=== PATIENT | female | born 1985 | race Caucasian/White ===

== ENCOUNTER 2020-05-17 04:11 | Inpatient (IN) | payer BC, OTHER ==
[2020-05-17] MEDS ORDERED: METHYLERGONOVINE 0.2MG/ML AMP IM PRN (04:17)
[2020-05-17] MEDS ORDERED: Ringers Lactate 1,000 ML IV PRN (04:17)
[2020-05-17] MEDS ORDERED: BUTORPHANOL 1 MG/ML INJ IV PRN (04:17)
[2020-05-17] MEDS ORDERED: CARBOPROST TROME 250 MCG/ML IM PRN (04:17)
[2020-05-17] MEDS ORDERED: PROMETHAZINE INJ 25 MG/ML AMP IM PRN (04:17)
[2020-05-17] MEDS ORDERED: Ringers Lactate 1,000 ML IV SCH (05:00)
[2020-05-17] MEDS ORDERED: OXYTOCIN/LR 20 UNIT/1,000 ML BAG IV SCH ×2 (05:00→14:00)
[2020-05-17 05:09] VITALS: BMI 35.2
[2020-05-17 05:32] LABS: Absolute Lymphocytes (CBC) 1.7 K/uL (0.7-4.9); Basophils % 0.3 % (0-1.3); Hematocrit 34.2 % (36.0-45.0); MPV 9.8 fL (7.6-11.3); RBC Red Blood Cell Count 3.76 M/uL (3.86-4.86); Urine Appearance CLOUDY; Urine Bilirubin NEGATIVE (NEG); Urine Blood 1+ (NEG); Urine Color YELLOW; Urine Glucose NEGATIVE (NEG); Urine Protein NEGATIVE (NEG); Urine Urobilinogen 0.2 mg/dL (0.2-1.0)
[2020-05-17 05:35] LABS: Urine Microscopic Reflex ORDER UMIC
[2020-05-17 06:06] LABS: Urine Culture Reflex Order REFLEXED
[2020-05-17 06:07] LABS: Urine Bacteria >50 /HPF (<20); Urine RBC <5 /HPF (NONE SEEN); Urine Urothelial Cells <5 /HPF (NONE SEEN)
[2020-05-17] MEDS ORDERED: FENTANYL CITR 100 MCG/2 ML IV ONE (07:12)
[2020-05-17] MEDS ORDERED: ROPIVACAINE HCL 100 ML IV PRN (07:13)
[2020-05-17] MEDS ORDERED: ROPIVACAINE HCL 0.2% 20ML AMP IV SCH (08:00)
--- NOTE | 2020-05-17 08:44 | PREOPHP ---
Date of Admission: 05/17/2020 A 35-year-old, 4, para 3, 39 weeks' gestation, requesting induction at this point. 3 cm, sti ll somewhat posterior, 50% effaced, vertex well applied, rupture of membranes, clear fluid. Labor ta lk given. The patient's initial blood pressures are slightly elevated, but she says she is anxious a nd now getting uncomfortable. Probably will require epidural anesthesia as the labor progresses. Do ing well at this point. [facility] Voice ID: [id number]
[2020-05-17] MEDS ORDERED: LIDOCAINE 2% MPF 5 ML VIAL ONE (11:36)
[2020-05-17] MEDS ORDERED: FENTANYL CITR 100 MCG/2 ML ONE ×2 (11:56→12:17)
[2020-05-17] MEDS ORDERED: FENTANYL/BUPIVACAINE/NS/PF 200 MCG/100 ML BAG EP ONE (12:25)
[2020-05-17] MEDS ORDERED: BUPIVACAINE 0.25% PF 30 ML VIAL ONE (12:27)
[2020-05-17] MEDS ORDERED: LIDOCAINE 1% MPF 30 ML VIAL ONE (13:44)
[2020-05-17] MEDS ORDERED: BISACODYL 10 MG RECTAL SUPP PR PRN (13:51)
[2020-05-17] MEDS ORDERED: Oxycodone HCl/Acetaminophen 1 TAB TAB PO PRN (13:51)
[2020-05-17] MEDS ORDERED: DIPHENHYDRAMINE 25 MG TAB/CAP PO PRN (13:51)
[2020-05-17] MEDS ORDERED: ACETAMINOPHEN 500 MG TAB PO PRN (13:51)
[2020-05-17] MEDS ORDERED: DOCUSATE NA/SENNA CONC 1 TAB PO PRN (13:51)
[2020-05-17] MEDS: IBUPROFEN 600 MG TAB PO PRN (17:30)
[2020-05-17] MEDS: Oxycodone HCl/Acetaminophen 1 TAB TAB PO PRN (21:05)
--- NOTE | 2020-05-17 23:40 | OP ---
Surgeon: Yoni Gonzalez MD This is a 35-year-old, 4, para 3, 39 weeks' gestation, 3 cm on admission. The patient is Rh negative, has received RhoGAM during the . Immune to Rubella. Negative beta strep screen. Rupture of membranes this morning, clear fluid. The patient progressed rapidly thereafter. Epidura l anesthesia was established at approximately 4-5 cm. The patient went to complete, second stage of about 10 minutes. Spontaneous vaginal delivery of 8 pounds 15 ounces male infant, Apgars 9 and 9, lo ose nuchal cord x1. No episiotomy. No laceration. Schultze delivery of the placenta, which was ins pected and noted be intact and normal. 350 cc or less blood loss. The patient tolerated all procedu res well. Final Diagnoses: Term intrauterine 39 weeks, labor induction, vaginal delivery, epidural a nesthesia, Rh negative, RhoGAM pending. [facility] Voice ID: [id number] Report ID: [id number]
[2020-05-18] MEDS: Oxycodone HCl/Acetaminophen 1 TAB TAB PO PRN ×4 (00:48→19:35)
[2020-05-18 01:13] LABS: RPR (Rapid Plasma Reagin) NON-REACT (NON-REACT)
[2020-05-18] MEDS: IBUPROFEN 600 MG TAB PO PRN ×4 (04:28→23:32)
[2020-05-18] MEDS ORDERED: Tdap (Diph,Pertuss(Acell),Tet Vac) 0.5 ML SYR IMVAC ONE (07:20)
--- NOTE | 2020-05-18 08:48 | DS ---
A 35-year-old, 4, para 3, 39 weeks' gestation, delivered an 8 pounds 15-ounce male infant, Ap gars 9 and 9. No episiotomy. No laceration. Schultze delivery of placenta. 350 mL or less blood l oss. The baby noted to have a loose nuchal cord x1. The patient is Rh negative. She has received h er RhoGAM shot, Tdap has been offered and she will give before she is dismissed. The patient request analgesics, Toradol 50 mg to be taken every 6 hours. Given thorough instructions. No post epidural problems. Final Diagnoses: Term intrauterine 39 weeks'. Vaginal delivery. Epidural anesthesia. Rh oGAM administered. Tdap pending. [facility]ARESH Voice ID: [id number] Report ID: [id number]
[2020-05-18] MEDS ORDERED: LABETALOL HCL 100 MG TAB PO ONE ×2 (17:35)
[2020-05-19] MEDS: Oxycodone HCl/Acetaminophen 1 TAB TAB PO PRN ×2 (00:03→04:02)
[2020-05-19] MEDS: IBUPROFEN 600 MG TAB PO PRN (07:21)
[2020-05-19 08:08] VITALS: BP 135/83; TEMP 97
== END 2020-05-19 13:15 | disposition home or self-care (01) | DRG 807 ==
LOC: 2ND-WC 04:11
PROVIDERS: ADMIT Specialist; ATTEND Specialist
PROC: 10E0XZZ Delivery of Products of Conception, External Approach (ICD-10-PCS; principal; 2020-05-17)
PROC: 10907ZC Drainage of Amniotic Fluid, Therapeutic from Products of Conception, Via Natural or Artificial Opening (ICD-10-PCS; 2020-05-17)
PROC: 3E0234Z Introduction of Serum, Toxoid and Vaccine into Muscle, Percutaneous Approach (ICD-10-PCS; 2020-05-17)
DX: O26.893 Other specified pregnancy related conditions, third trimester (principal); Z37.0 Single live birth; Z67.91 Unspecified blood type, Rh negative; Z3A.39 39 weeks gestation of pregnancy
CPT/HCPCS: 36415; 81003; 81015; 85025; 85461; 86592; 86850; 86900; 86901; 87086; 87088; 90471; 90715; J0595; J2210; J2550; J2590; J2790; J2795; J3010; J7120